=== PATIENT | male | born 1990 | race Caucasian/White ===

== ENCOUNTER 2020-02-26 23:42 | Outpatient (CLI) | payer OTHER | END 2020-02-26 23:43 | disposition home or self-care (01) | LOC: COV 23:42 | PROVIDERS: ATTEND Family Medicine | DX: R06.02 Shortness of breath (principal); R68.83 Chills (without fever); R43.8 Other disturbances of smell and taste; J34.89 Other specified disorders of nose and nasal sinuses; Z20.822 Contact with and (suspected) exposure to COVID-19 ==